=== PATIENT | male | born 1985 | race African-American/Black ===

== ENCOUNTER 2017-09-07 08:26 | Emergency (ER) | payer SELFPAY ==
[2017-09-07 08:27] VITALS: BP 147/77; PULSE 56; RESP 17; TEMP 36.8; O2SAT 100; BMI 33.6
--- NOTE | 2017-09-07 08:52 | RAD_ITS ---
STUDY: X-RAY - RIGHT ANKLE REASON FOR EXAM: Male, 32 years old. Pain and soft tissue swelling following injury. TECHNIQUE: 3 view(s) of the ankle. COMPARISON: None. FINDINGS: Normal visualized distal tibia and fibula. Normal medial and lateral malleoli. Normal tibiotalar articulation and ankle mortise. Tiny plantar spur. The visualized subtalar, talonavicular, calcaneocuboid and tarsal articulations are normal. The soft tissue structures are unremarkable. RAD/Ankle min 3 Views IMPRESSION: Tiny plantar spur. Electronically Signed: Blayne Espinoza MD at 9:30 EDT Tel [phone], Service support ,
--- NOTE | 2017-09-07 08:59 | ED.VISSUMM ---
- ER Visit Summary Date of Service: 09/07/17 Chief Complaint: Right ankle injury History of Present Illness: The patient is a 32 M who states that he was walking on a sidewalk yesterday when he fell off of it into a pothole twisting his ankle. He has pain over the medial and lateral malleolus. Physical Examination: Afebrile vital signs are stable Gen: Well-nourished well-developed Head: Normocephalic atraumatic Eyes: Perrl EOMI ENT: TMs clear no rhinorrhea moist mucous membranes Neck: Supple no lymphadenopathy no JVD nontender CVS: Regular rate rhythm no murmurs normal S1-S2 Respiratory: No distress clear to auscultation bilaterally chest nontender Abdomen: Soft nontender nondistended normal bowel sounds no masses Back: Nontender Extremity: No significant swelling noted. No fifth metatarsal pain. No fibular head pain. No posterior malleolar pain. Tenderness over the lateral medial malleolus. Skin: Normal color no rash Neuro: alert orientated ?3 CN II-XII intact normal strength sensation reflexes gait cerebellar Psych: Normal affect normal mood Test Results: X-Rays were negative for fracture Emergency Department Course and Treatment: Jese wrap will be applied patient will use conservative treatment. Follow-up with primary care 1014 days if not improved Impression: 1. Right ankle sprain This note was generated with [employer] dictation software. It may contain incorrect words, spelling, and punctuation that were not noted in review of the chart prior to signing ED Disposition - Plan for ED Patient: Disposition: Home or Assisted Living Chief Complaint: Lower Extremity Injury Instructions: ED Sprain Ankle W X Ray Referrals: Marcelo Stovall MD [STAFF PHYSICIAN] - 10-14 Days if not better
== END 2017-09-07 09:49 | disposition home or self-care (01) ==
PROVIDERS: Emergency Provider Emergency Medicine
DX: S93.401A Sprain of unspecified ligament of right ankle, initial encounter (principal); W17.2XXA Fall into hole, initial encounter; Y93.01 Activity, walking, marching and hiking; Y92.480 Sidewalk as the place of occurrence of the external cause; Y99.8 Other external cause status
CPT/HCPCS: 73610; 99282